=== PATIENT | female | born 1975 | race Caucasian/White ===

== ENCOUNTER 2020-02-28 15:56 | Outpatient (CLI) | payer BC, SELFPAY ==
--- NOTE | ~2020-02-28 | US_ITS ---
EXAMINATION: US right upper quadrant DATE: 02/28/2020 16:24 INDICATION: Hepatic steatosis. TECHNIQUE: Multiple grayscale and Doppler ultrasound images of the abdomen were obtained. COMPARISON: 11/02/2017 FINDINGS: The pancreatic head and body are normal in appearance. The pancreatic tail is not visualized. The vi sualized proximal to mid inferior vena cava is normal. Liver has normal echogenicity and contour, wit h a smooth surface. 2.2 cm anechoic cyst in the right hepatic lobe.. No intrahepatic biliary duct dil ation suspected. Portal venous flow was seen in the hepatopetal, normal direction and has normal Dopp ler waveform. Gallbladder is not visualized and reportedly surgically absent. The common bile duct me asures 9 mm in diameter which is within normal limits post cholecystectomy. Visualized portion of the right kidney demonstrates normal contour and echogenicity with no hydronephrosis. IMPRESSION: 1. 2.2 cm hepatic cyst. Otherwise normal liver with no increased echogenicity to suggest steatosis. 2. Common bile duct mildly dilated to 9 mm which is within normal limits post cholecystectomy. No int rahepatic or ductal dilation. Reviewed, dictated and finalized at location A. IMPRESSION: 1. 2.2 cm hepatic cyst. Otherwise normal liver with no increased echogenicity t o suggest steatosis. 2. Common bile duct mildly dilated to 9 mm which is within normal limits post c holecystectomy. No intrahepatic or ductal dilation.
== END 2020-02-28 15:57 | disposition home or self-care (01) ==
PROVIDERS: PCP Physician Assistant; Visit Provider Physician Assistant
DX: K76.0 Fatty (change of) liver, not elsewhere classified (principal); K76.89 Other specified diseases of liver
CPT/HCPCS: 76705

== ENCOUNTER → 2020-05-28 15:53 | Outpatient (CLI) | payer BC, SELFPAY ==
--- NOTE | ~2020-05-28 | US_ITS ---
EXAMINATION: US pelvic complete EXAM DATE: 05/28/2020 16:13 INDICATION: Uterine leiomyoma. TECHNIQUE: Pelvic transabdominal sonogram was performed. There are multiple grayscale and Doppler im ages available for interpretation. Comparison is made to prior examination from 07/11/2019. FINDINGS: Uterus measures 11.7 x 4.7 x 6.4 cm, with a solid heterogeneous echogenicity region report ed as left of the uterus measuring 6.9 x 5.7 x 6.4 cm, separate from but contiguous to region which w as measured as the left ovary. Could be large exophytic fibroid. On exam dated 11/10/2017 it was measu red at 6.6 x 4.8 x 7.2 cm, not significantly changed accounting for differences in acquisition. Endom etrial stripe measures 8 mm, within normal limits. There is no free pelvic fluid. Right adnexa: The ovary measures 2.4 x 1.6 x 2.6 cm and is morphologically normal. Ovarian vascular f low confirmed. Left adnexa: The ovary measures 5.5 x 4.7 x 5.0 cm, with a cystic region measuring 4.6 cm. These claudine urements are excluding the above-mentioned soft tissue mass (ovarian versus exophytic fibroid). Ovari an vascular flow confirmed. Compared to ultrasound from 01/04/2019, and 11/10/2017 there is no significant interval change in this exam. IMPRESSION: Left periadnexal solid mass, most likely exophytic fibroid unchanged. Difficult to comple tely exclude solid ovarian neoplasm. Reviewed, dictated and finalized at location A. IMPRESSION: Left periadnexal solid mass, most likely exophytic fibroid unchange d. Difficult to completely exclude solid ovarian neoplasm.
== END ==
PROVIDERS: Visit Provider Obstetrics & Gynecology
DX: D25.9 Leiomyoma of uterus, unspecified (principal)
CPT/HCPCS: 76856

== ENCOUNTER → 2020-10-18 15:46 | Outpatient (CLI) | payer BC, SELFPAY ==
--- NOTE | ~2020-10-18 | MM_ITS ---
EXAMINATION: MM screening [facility] BI w naveen HISTORY: Screening TECHNIQUE: Craniocaudal and mediolateral oblique 3-D tomosynthesis images were obtained and synthetic 2-D images were generated. CAD analysis was submitted and interpreted. COMPARISON: Comparison to multiple prior studies sequentially, with oldest reviewed study dated 11/10. BREAST PARENCHYMAL COMPOSITION: There are scattered areas of fibroglandular density. FINDINGS: There is no evidence of suspicious mass, calcification, or architectural distortion to sugg est malignancy in either breast. There has been no suspicious interval change. IMPRESSION: 1. No mammographic evidence of malignancy. 2. Recommend routine screening mammography in one year. BI-RADS Category 1: Negative Reviewed, dictated and finalized at location A. CONDUCTOR WAFERS ETCH OPERATOR
== END ==
PROVIDERS: PCP Physician Assistant; Visit Provider Obstetrics & Gynecology
DX: Z12.31 Encounter for screening mammogram for malignant neoplasm of breast (principal)
CPT/HCPCS: 77063; 77067

== ENCOUNTER → 2020-10-22 15:09 | Outpatient (CLI) | payer BC, SELFPAY ==
--- NOTE | ~2020-10-22 | MR_ITS ---
EXAMINATION: MR brain/brain stem wo/w con DATE: 10/22/2020 16:22 INDICATION: Postural dizziness. TECHNIQUE: Magnetic resonance imaging (MRI) of the brain and brainstem was performed without and with 20 mL MultiHance intravenous contrast. Sequences included sagittal and axial T1-weighted FSE, axial diffusion-weighted FS EPI, axial T2*-weighted GRE, axial T2-weighted FLAIR Propeller, axial T2-weight ed Propeller, small rbgmr-jx-cprg coronal FIESTA, small cexdj-bl-blbh coronal T1-weighted FSE, and sm all xjfso-oy-dqrl axial T1-weighted SPGR. Postcontrast sequences included axial T1-weighted FSE, smal l pvwuc-ch-zyyg coronal T1-weighted FSE, and small sepgg-jk-qfum axial T1-weighted SPGR. Apparent dif fusion coefficient (ADC) maps were created. COMPARISON: None. FINDINGS: There are scattered areas of nonspecific increased T2-weighted signal intensity in the cere bral white matter, which is within normal limits for the patient's age. There is no intracranial hemo rrhage, acute infarction, or abnormal intracranial mass lesion. The ventricles are normal in size. Th e internal auditory canals and inner and middle ears are normal. The mastoid air cells are normal. Th e paranasal sinuses are clear. The orbits are normal. IMPRESSION: 1. Normal aging brain. Reviewed, dictated and finalized at location A. PING RECEIVING MANAGER IMPRESSION: 1. Normal aging brain.
[2020-10-22 15:43] LABS: Estimated Glomerular Filt Rate > 60
== END ==
PROVIDERS: PCP Physician Assistant; Visit Provider Physician Assistant
DX: R42 Dizziness and giddiness (principal)
CPT/HCPCS: 70553; A9577

== ENCOUNTER → 2020-11-01 14:49 | Outpatient (CLI) | payer BC, SELFPAY ==
--- NOTE | ~2020-11-01 | CT_ITS ---
EXAMINATION: CT abdomen pelvis w con EXAM DATE: 11/01/2020 15:17 INDICATION: RLQ pain . TECHNIQUE: Spiral CT of the abdomen and pelvis was performed following intravenous injection of 100 m L Omnipaque 350. Axial, coronal and sagittal images were reviewed. The dose-length product (DLP) fo r this examination was 1104.48 mGy-cm. The exposure was tailored according to patient size (auto mA exposure control), and iterative reconstruction (ASIR) was used as additional dose reduction techniqu e. Comparison is made to prior examination from 12/28/2018. FINDINGS: There is a cyst in the liver measuring 1.5 cm in the gallbladder fossa. The liver, spleen, adrenal glands and pancreas are otherwise unremarkable. There are cholecystectomy clips. Portal an d splenic veins are patent. Kidneys enhance symmetrically. There is no hydronephrosis. There is heterogeneous mass in the right side of the pelvis, appears to be most likely an exophytic f ibroid measuring 6 x 10 cm (dimensions in 2019 8.0 x 5.5 cm, has increased in size). There is another structure identified which is believed to be a cyst within the left ovary, which is separate from th is solid mass. The bladder is unremarkable. There is no retroperitoneal or pelvic lymphadenopathy. There is mild scattered arteriosclerotic disease. Mildly loren mesentery appearance with some small scattered lymph nodes. The appendix is normal. The stomach and small bowel are unremarkable. There is expected amount of c olonic stool. No free intraperitoneal gas. The heart is normal in size. There are no pericardial or pleural effusions. The lung bases are unremarkable. There are no osteoblastic or osteolytic les ions identified. IMPRESSION: 1. Increase in size of left-sided pelvic mass, differential diagnosis including exophytic fibroid an d left ovarian neoplasm. Given continued growth, histologic correlation could be considered. Recommen d RADIATION SAFETY OFFICER consult. 2. Normal appendix. No acute findings. Reviewed, dictated and finalized at location A. UTER NETWORKER IMPRESSION: 1. Increase in size of left-sided pelvic mass, differential diagnosis includin g exophytic fibroid and left ovarian neoplasm. Given continued growth, histolog ic correlation could be considered. Recommend RADIATION SAFETY OFFICER consult. 2. Normal appendix. No acute findings.
== END ==
PROVIDERS: PCP Physician Assistant; Visit Provider Physician Assistant
DX: R10.31 Right lower quadrant pain (principal)
CPT/HCPCS: 74177; Q9967

== ENCOUNTER → 2020-11-19 15:52 | Outpatient (CLI) | payer BC, SELFPAY ==
--- NOTE | ~2020-11-19 | US_ITS ---
EXAMINATION: US pelvic complete w TV DATE: 11/19/2020 16:17 INDICATION: Pelvic mass Comparison:05/28/2020 TECHNIQUE: Multiple transabdominal and endovaginal sonographic images of the pelvis performed. FINDINGS: The uterus measures 11.3 x 4.5 x 5.2 cm. There is an exophytic left periuterine mass. 0.1 x 7.4 x 7.5 cm The endometrial complex measures 11 mm. The right ovary measures 3.5 x 2.2 x 2.9 cm and the left ovary measures 2 x 1.3 x 1.8 cm. There are small follicles in each ovary.Normal doppler signal in both ovaries. There is no free fluid in the pelvis. There are no abnormal masses seen on either side. IMPRESSION: 1. Left periuterine mass, likely exophytic fibroid, increased in size compared with prior examination . Cannot exclude left ovarian neoplasm. Reviewed, dictated and finalized at location A. CAL SECRETARY TEACHER IMPRESSION: 1. Left periuterine mass, likely exophytic fibroid, increased in size compared with prior examination. Cannot exclude left ovarian neoplasm.
== END ==
PROVIDERS: Visit Provider Obstetrics & Gynecology
DX: R19.00 Intra-abdominal and pelvic swelling, mass and lump, unspecified site (principal); N85.9 Noninflammatory disorder of uterus, unspecified
CPT/HCPCS: 76830; 76856

== ENCOUNTER → 2021-01-18 15:22 | Outpatient (CLI) | payer BC, SELFPAY ==
--- NOTE | ~2021-01-18 | MR_ITS ---
EXAMINATION: MR orbits face neck wo/w con DATE: 01/18/2021 16:32 INDICATION: Other subjective visual disturbances. TECHNIQUE: Magnetic resonance imaging (MRI) of the orbits was performed without and with 20 mL MultiH ance intravenous contrast. Sequences included sagittal and axial T1-weighted FSE, axial diffusion-ana ghted FS EPI, axial T2*-weighted GRE, axial T2-weighted FLAIR Propeller, and axial T2-weighted Propel ler. Postcontrast sequences included axial and coronal T1-weighted FSE. Apparent diffusion coefficien t (ADC) maps were created. Sequences of the orbits included coronal and axial T2-weighted FS FSE and T1-weighted FSE. Postcontrast sequences included axial and coronal T1-weighted FS FSE. COMPARISON: Brain MRI 10/22/2020 FINDINGS: There are scattered areas of nonspecific increased T2-weighted signal intensity in the cere bral white matter, which is within normal limits for the patient's age. There is no intracranial hemo rrhage, acute infarction, or abnormal intracranial mass lesion. The ventricles are normal in size. T he mastoid air cells are normal. The paranasal sinuses are clear. The extraocular muscles are normal. The optic nerves and optic chiasm are normal. IMPRESSION: 1. Normal orbits. Normal aging brain. Reviewed, dictated and finalized at location A.
[2021-01-18 15:54] LABS: Estimated Glomerular Filt Rate > 60
== END ==
PROVIDERS: PCP Physician Assistant; Visit Provider Physician Assistant
DX: H53.19 Other subjective visual disturbances (principal)
CPT/HCPCS: 70543; A9577

== ENCOUNTER → 2022-06-04 15:13 | Outpatient (CLI) | payer BC, SELFPAY ==
--- NOTE | ~2022-06-04 | MM_ITS ---
EXAMINATION: MM screening [facility] BI w naveen HISTORY: Screening mammogram TECHNIQUE: Craniocaudal and mediolateral oblique 3-D tomosynthesis images were obtained and synthetic 2-D images were generated. CAD analysis was submitted and interpreted. COMPARISON: 10/18/2020, 07/03/2019, 11/10/2017 BREAST PARENCHYMAL COMPOSITION: There are scattered areas of fibroglandular density. FINDINGS: There is no suspicious mass, calcification, or architectural distortion to suggest malignan cy in either breast. There has been no suspicious interval change. IMPRESSION: 1. No mammographic evidence of malignancy. 2. Recommend routine screening mammography in one year. BI-RADS Category 1: Negative Reviewed, dictated and finalized at location A.
== END ==
PROVIDERS: PCP Physician Assistant; Visit Provider Physician Assistant
DX: Z12.31 Encounter for screening mammogram for malignant neoplasm of breast (principal)
CPT/HCPCS: 77063; 77067

== ENCOUNTER 2022-10-17 14:33 | Outpatient (CLI) | payer OTHER, SELFPAY ==
--- NOTE | 2022-10-17 | ECHO_ITS ---
Patient Info Name: Apolonia Ochoa Age: 47 years : 1975 Gender: Female Ht: 69 in Wt: 270 lbs BSA: 2.50 m2 HR: 100 bpm BP: 138 / 83 mmHg Heart Rhythm: Sinus Rhythm Technical Quality: Fair Exam Date: 10/17/2022 2:49 PM Exam Location: [facility] Pulmonary Patient Status: Outpatient Admit Date: 10/17/2022 Staff Ordering Physician: VeronicaMaggy PA-C Blade Grader Operator: Erendira Coffey RDCS Attending Provider: Diann*Maggy PA-C Exam Type: CA echo doppler color flow Study Info Indications - Edema of lower extremity Complete two-dimensional, color flow and Doppler transthoracic echocardiogram is performed. Summary 1. Complete two-dimensional, color flow and Doppler transthoracic echocardiogram is performed. 2. Left ventricular chamber dimension is normal. 3. Left ventricular systolic function is normal, estimated at >70%. 4. There is no increased left ventricular wall thickness. 5. The left ventricular diastolic function is normal. 6. There is mild tricuspid valve regurgitation. Left Ventricle Left ventricular chamber dimension is normal. Left ventricular systolic function is normal, estimated at >70%. There is no increased left ventricular wall thickness. The left ventricular diastolic function is normal. Right Ventricle Right ventricular chamber dimension is normal. Right ventricular systolic function is normal. Left Atria Left atrial chamber dimension is normal. Right Atria Right atrial chamber dimension is normal. Atrial Septum Intact interatrial septum visualized by color flow imaging. Aortic Valve The aortic valve is trileaflet. There is no aortic valve sclerosis. There is no aortic valve stenosis. There is trace aortic valve regurgitation. Pulmonic Valve The pulmonic valve is normal. There is no pulmonic valve stenosis. There is trace pulmonic regurgitation. Mitral Valve The mitral valve has normal leaflets. There is no mitral valve stenosis. There is trace mitral valve regurgitation. Tricuspid Valve The tricuspid valve leaflets are normal. There is no significant tricuspid valve stenosis. There is mild tricuspid valve regurgitation. No pulmonary hypertension, estimated pulmonary arterial systolic pressure is 23 mmHg. Pericardium/Pleural The pericardium appears normal. There is no pericardial effusion. Inferior Vena Cava Normal inferior vena cava with >50% collapse upon inspiration consistent with normal right atrial pressure, 10 mmHg. Aorta The aortic root size at the sinus of Valsalva is normal. Left Ventricular Outflow Tract Name Value Normal LVOT 2D LVOT Diameter 2.0 cm LVOT Doppler LVOT Peak Gradient 5 mmHg LVOT Mean Gradient 2 mmHg LVOT VTI 18 cm LVOT VTI/AV VTI Ratio 0.8 LVOT Stroke Volume 57 ml LVOT CO 4.6 l/min LVOT CI 1.8 l/min/m2 Pulmonic Valve
== END 2022-10-17 14:34 | disposition home or self-care (01) ==
PROVIDERS: PCP Physician Assistant; Visit Provider Physician Assistant
DX: R60.0 Localized edema (principal)
CPT/HCPCS: 93306

== ENCOUNTER 2024-07-20 14:46 | Outpatient (CLI) | payer BC, SELFPAY ==
--- NOTE | ~2024-07-20 | MM_ITS ---
EXAMINATION: MM screening [facility] BI w naveen HISTORY: Screening TECHNIQUE: Craniocaudal and mediolateral oblique 3-D tomosynthesis images were obtained and synthetic 2-D images were generated. CAD analysis was submitted and interpreted. COMPARISON: Comparison to multiple prior studies sequentially, with oldest reviewed study dated 11/10. BREAST PARENCHYMAL COMPOSITION: Not dense: There are scattered areas of fibroglandular density. FINDINGS: There is no evidence of suspicious mass, calcification, or architectural distortion to sugg est malignancy in either breast. There has been no suspicious interval change. IMPRESSION: 1. No mammographic evidence of malignancy. 2. Recommend routine screening mammography in one year. BI-RADS Category 1: Negative Reviewed, dictated and finalized at location B. ING ROOM SUPERVISOR
== END 2024-07-20 14:47 | disposition home or self-care (01) ==
PROVIDERS: PCP Physician Assistant; Visit Provider Obstetrics & Gynecology
DX: Z12.31 Encounter for screening mammogram for malignant neoplasm of breast (principal)
CPT/HCPCS: 77063; 77067